=== PATIENT | male | born 2000 | race Caucasian/White ===

== ENCOUNTER 2021-08-18 15:38 | Emergency (ER) | payer OTHER, BC ==
--- OUTSIDE RECORDS SUMMARY | 2021-08-18 15:40 | XMS REPORT | Continuity of Care Document ---
:2000 Author Organization [facility] t Address [address] [place] [address] Care Team Providers Name Role Phone Ronni PETTY, Terrence Primary Care Physician Ronni PETTY, Terrence Attending Clinician TERRENCE MASTERSON Attending Clinician Unavailable Doctor Unassigned, Name Attending Clinician Unavailable Jimmie CHAPLAINCY, G Attending Clinician MARGOT Attending Clinician Unavailable Payers Payer Name Policy Type Policy Number Effective Date Expiration Date [facility] - [id number] 2017 00:00:00 OUT OF STATE Problems Condition Condition Condition Status Onset Resolution Last Treating Co mments Source Name Details Category Date Date Treatment Clinician Date BMI (body BMI (body Disease Active 2016-06 Uni vers mass mass 07-05 ity of index), index), 00:00: [place] pediatric, pediatric, 00 Me dical greater greater Branch than or than or equal to equal to 95% for 95% for age age Hepatic Hepatic Disease Active 2016-06 Univers steatosis steatosis 07-05 ity of 00:00: [place] 00 Medical Branch Chronic Chronic Disease Active 2016-06 Univers pancreatit pancreatit 07-05 it y of is, is, 00:00: [place] unspecifie unspecifie 00 Me dical d d Branch pancreatit pancreatit is type is type Blood Blood Disease Active 2016-06 Univers pressure pressure 07-05 ity of elevated elevated 00:00: [place] without without 00 Medical history of history of Br anch HTN HTN Allergies, Adverse Reactions, Alerts Allergy Allergy Status Severity Reaction(s) Onset Inactive Treating Comm ents Source Name Type Date Date Clinician Amoxicil Propensi Active Rash 2016-06 Univer s kwaku ty to 07-02 ity of adverse 00:00: [place] reaction 00 Medical s Branch AMOXICIL DRUG Active Rash 2016-06 Univers KWAKU INGREDI 07-02 ity of 00:00: [place] 00 Medical Branch Social History Social Habit Start Date Stop Date Quantity Comments Source Exposure to Not sure [facility] SARS-CoV-2 [place] Medical (event) Branch Alcohol intake 2019-09-20 2019-09-20 Current University 00:00:00 00:00:00 non-drinker of [facility] alcohol Branch (finding) Tobacco use and 2017-05-05 2017-05-05 Never used Universit y of exposure 00:00:00 00:00:00 [facility] Sex Assigned At 2000 2000 Universit y of 00:00:00 00:00:00 [facility] Smoking Status Start Date Stop Date Source Never smoker [facility] acute hospital Branch Medications Ordered Filled Start Stop Current Ordering Indication Dosage Frequency Signature Comments Components Source Medication Medication Date Date Medication? Clinician (SIG) Name Name lidocaine 2020- No 10mL 10 mL, Unive rs 2% viscous -15 -15 Oral, ity of (LIDOCAINE 23:30: 22:17 ONCE, 1 [place] as VISCOUS) 2 00 :00 dose, Wed Medi steve % solution 09/20/19 at Bra n[place] 10 mL 1830, MARION doxycycline 2020-0 Yes [id number] 100mg Take 1 Univers hyclate 100 4-15 capsule by it y of mg capsule 00:00[place] (two[place] Medical times Branch daily. hydroCHLORO 2020-0 Yes [id number] 50mg Take 2 Univers thiazide 25 4-15 tablets by it y of mg tablet 00:00: mouth [place] 00 every Medical morning. Branch lidocaine 4 2020-0 Yes [id number] Apply to Univers % gel 4-15 area(s) ity of 00:00: every 8 [place] 00 (eight) Medical hours as Branch needed for Pain (scale 1-3). doxycycline 2020-0 Yes [id number] 100mg Take 1 Univers hyclate 100 4-15 capsule by it y of mg capsule 00:00[place] (two[place] Medical times Branch daily. hydroCHLORO 2020-0 Yes [id number] 50mg Take 2 Univers thiazide 25 4-15 tablets by it y of mg tablet 00:00: mouth [place] 00 every Medical morning. Branch lidocaine 4 2020-0 Yes [id number] Apply to Univers % gel 4-15 area(s) ity of 00:00: every 8 [place] 00 (eight) Medical hours as Branch needed for Pain (scale 1-3). doxycycline 2020-0 Yes [id number] 100mg Take 1 Univers hyclate 100 4-15 capsule by it y of mg capsule 00:00[place] (two) Medical times Branch daily. hydroCHLORO 2020-0 Yes [id number] 50mg Take 2 Univers thiazide 25 4-15 tablets by it y of mg tablet 00:00: mouth [place] 00 every Medical morning. Branch lidocaine 4 2020-0 Yes [id number] Apply to Univers % gel 4-15 area(s) ity of 00:00: every 8 [place] 00 (eight) Medical hours as Branch needed for Pain (scale 1-3). doxycycline 2020-0 Yes [id number] 100mg Take 1 Univers hyclate 100 4-15 capsule by it y of mg capsule 00:00: mouth [place] (two) Medical times Branch daily. hydroCHLORO 2020-0 Yes [id number] 50mg Take 2 Univers thiazide 25 4-15 tablets by it y of mg tablet 00:00: mouth [place] 00 every Medical morning. Branch lidocaine 4 2020-0 Yes [id number] Apply to Univers % gel 4-15 area(s) ity of 00:00: every 8 [place] 00 (eight) Medical hours as Branch needed for Pain (scale 1-3). doxycycline 2020-0 Yes [id number] 100mg Take 1 Univers hyclate 100 4-15 capsule by it y of mg capsule 00:00: mouth [place] 00 (two) Medical times Branch daily. hydroCHLORO 2020-0 Yes [id number] 50mg Take 2 Univers thiazide 25 4-15 tablets by it y of mg tablet 00:00: mouth [place] 00 every Medical morning. Branch lidocaine 4 2020-0 Yes [id number] Apply to Univers % gel 4-15 area(s) ity of 00:00: every 8 [place] 00 (eight) Medical hours as Branch needed for Pain (scale 1-3). ibuprofen 2018-0 Yes Take by Univ ers (MOTRIN 8-07 mouth. ity of ORAL) 13:45: [place] 16 Medical Branch diphenhydra 2018-0 Yes Take by Un tiara mine HCl 8-07 mouth. ity of (BENADRYL 13:45: [place] ALLERGY 16 Medical ORAL) Branch ibuprofen Yes Take by [facility] ers (MOTRIN 8-07 mouth. ity of ORAL) 13:45: [place] [address] Medical Branch diphenhydra Yes Take by Un tiara mine HCl 8-07 mouth. ity of (BENADRYL 13:45: [place] ALLERGY 16 Medical ORAL) Branch ibuprofen Yes Take by [facility] ers (MOTRIN 8-07 mouth. ity of ORAL) 13:45: [address] diphenhydra Yes Take by Un tiara mine HCl 8-07 mouth. ity of (BENADRYL 13:45: [place] ALLERGY 16 Medical ORAL) Branch ibuprofen Yes Take by Univ ers (MOTRIN 8-07 mouth. ity of ORAL) 08:45: [address] diphenhydra Yes Take by Un tiara mine HCl 8-07 mouth. ity of (BENADRYL 08:45: [place] ALLERGY 16 Medical ORAL) Branch ibuprofen Yes Take by [facility] ers (MOTRIN 8-07 mouth. ity of ORAL) 08:45: [address] diphenhydra Yes Take by Un tiara mine HCl 8-07 mouth. ity of (BENADRYL 08:45: [place] ALLERGY 16 Medical ORAL) Branch Vital Signs Vital Name Observation Time Observation Value Comments Source Systolic blood 2019-09-20 23:32:25 166 mm[Hg] [place] [facility] Diastolic blood 2019-09-20 23:32:25 107 mm[Hg] [facility] rsity of pressure [facility] Heart rate 2019-09-20 23:32:25 71 /min [facility] Respiratory rate 2019-09-20 23:32:25 16 /min [facility] Oxygen saturation in 2019-09-20 23:32:25 98 /min [facility] Arterial blood by [facility] Pulse oximetry Branch Body temperature 2019-09-20 21:43:00 36.89 Breanna [facility] Body height 2019-09-20 21:43:00 170.2 cm [facility] Body weight 2019-09-20 21:43:00 129.275 kg [facility] BMI 2019-09-20 21:43:00 44.64 kg/m2 [facility] Procedures Procedure Date / Time Performing Clinician Source Performed US RETROPERITONEAL 2021-02-24 19:35:00 Jaime Masterson [facility] US RETROPERITONEAL 2020-04-26 00:51:58 Jaime Masterson [facility] CONSENT/REFUSAL FOR 2020-04-26 00:13:53 Doctor UnassRos ramires [facility] DIAGNOSIS AND TREATMENT [place] [facility] URINALYSIS 2019-09-20 22:40:00 Christy Samuel [facility] Encounters Start End Encounter Admission Attending Care Care Encounter Source Date/Time Date/Time Type Type Clinicians Facility Department ID 2021-04-03 Emergency [facility] [id number] Univers 18:07:40 ity of [facility] 2021-02-24 2021-02-24 [facility] [id number] Univers 13:45:00 23:59:00 Encounter Jaime Chante [id number] ity of Ter[place] [id number] [facility] [id number] [address] 2021-02-24 2021-02-24 Outpatient R [facility] [id number] Univers 13:45:00 13:45:00 [facility] [id number] ity o f [facility] 2021-02-24 2021-02-24 Outpatient R [facility] [id number] Univers 00:00:00 00:00:00 TERRIELOBITOKISHORE ity o f [facility] 2020-04-25 2020-04-25 [facility] [id number] Univers 18:30:00 23:59:00 Encounter Jaime Chante [id number] ity of [place] [id number] [facility] [id number] [address] 2020-04-25 2020-04-25 Outpatient R [facility] [id number] Univers 18:30:00 18:30:[address] [facility] [id number] ity o f [facility] 2020-04-25 2020-04-25 Outpatient R RONNI [facility] [id number] Univers 00:00:00 00:00:00 JAIME ity o f [facility] 2020-04-25 2020-04-25 Orders Doctor ABBY [id number] Univers 00:00:00 00:00:00 Only Unassigned, LEWIS [id number] ity of [place] [facility] [id number] [place] [id number] [facility] 00[address] [place] 2019-09-20 2019-09-20 Emergency [facility] [id number] [facility] 16:46:48 19:05:00 Christy Sharif [id number] ity of [id number] [place] [id number] [facility] 084 [place] 2019-06-11 2019-06-[address] [facility] [id number] Univers 19:07:37 19:59:00 RENE [facility] Results Test Description Test Time Test Comments Results Result Comments Source URINALYSIS 2019-09-20 23:21:00 Test Item Value Reference Range Interpretation Comme nts APPEARANCE (test code = Hazy Clear A 4201707519) COLOR (test code = 2183403953) Yellow Yellow PH (test code = 0188793224) 4.8-8.0 SP GRAVITY (test code = 1.003-1.030 6846871835) GLU U QUAL (test code = Normal Normal 9135563525) BLOOD (test code = 6845120462) 2+ Negative A KETONES (test code = 7139072599) Negative Negative PROTEIN (test code = 2887-8) 100 mg/dL Negative A UROBILIN (test code = Normal Normal 6182192474) BILIRUBIN (test code = Negative Negative 4852226182) NITRITE (test code = 2787121268) Negative Negative LEUK CIARA (test code = Negative Negative 2555146879) RBC/HPF (test code = 1954537131) See_Comment H [Automated message] The system which ge nerated this result transmit lizette reference range: 0 - 3 HP F. The reference range was not used to interpret th is result as normal/abnormal . WBC/HPF (test code = 7735366840) See_Comment H [Automated message] The system which ge nerated this result transmit lizette reference range: 0 - 5 HP F. The reference range was not used to interpret th is result as normal/abnormal . BACTERIA (test code = Few Negative A 9273399936) MUCOUS (test code = 7879298689) Moderate Negative LPF A SQ EPITH (test code = <1 HPF 4927085816) Lab Interpretation (test code = Abnormal 21228-7) [facility]
[2021-08-18] MEDS ORDERED: ONDANSETRON 4 MG/2 ML VIAL ONE (15:55)
[2021-08-18 16:20] LABS: Potassium 3.9 mmol/L (3.5-5.1)
[2021-08-18 16:24] LABS: Absolute Lymphocytes (CBC) 1.7 K/uL (0.7-4.9); Lymphocytes % 19.6 % (15.3-44.8); RBC Red Blood Cell Count 4.98 M/uL (4.33-5.43)
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
[2021-08-18] MEDS ORDERED: NA CHLORIDE 0.9% 500 ML ONE (16:52)
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
[2021-08-18 18:23] VITALS: TEMP 98
[2021-08-18 18:27] VITALS: BP 169/97; O2SAT 98
--- NOTE | 2021-08-20 07:27 | EKG ---
Test Date: 2021-08-18 Test Time: 15:40:47 Industrial Training Specialist: JACKI MEASUREMENT RESULTS: Intervals: Rate: 72 ID: [id number] QRSD: 86 QT: 372 QTc: 407 [place]: P: 29 ID: [id number] QRS: 40 T: 31 INTERPRETIVE STATEMENTS: Normal sinus rhythm Normal ECG No previous ECG available for comparison Electronically Signed On 08-20-21 07:22:31 CDT by [place]
== END 2021-08-18 17:56 | disposition home or self-care (01) ==
LOC: ER 15:38
DX: S22.32XA Fracture of one rib, left side, initial encounter for closed fracture (principal); S00.81XA Abrasion of other part of head, initial encounter; S00.83XA Contusion of other part of head, initial encounter; V23.4XXA Motorcycle driver injured in collision with car, pick-up truck or van in traffic accident, initial encounter; I10 Essential (primary) hypertension; Z88.1 Allergy status to other antibiotic agents
CPT/HCPCS: 96361; 93005; 85025; 80048; 36415; 86900; 86850; 86901; 70450; 72125; 71260; 70486; 76377; 74177; 96374; 99284; Q9967; J7040; J2405